=== PATIENT | female | born 1980 | race American Indian/Alaskan Native ===

== ENCOUNTER 2018-04-01 08:52 | Inpatient (IN) | payer SELFPAY ==
[2018-04-01] MEDS ORDERED: BABY ASPIRIN PO ONE (08:53)
[2018-04-01] MEDS ORDERED: ZOFRAN IV ONE (08:53)
[2018-04-01] MEDS ORDERED: NACL 0.9% 250ML 250 ML IV ONE (08:54)
[2018-04-01] MEDS ORDERED: SUBLIMAZE IV ONE (08:55)
--- NOTE | 2018-04-01 08:56 | Emergency Department Report ---
ED Chest Pain HPI - General Chief Complaint: Chest Pain Stated Complaint: CHEST PAIN Time Seen by Provider: 04/01/18 08:53 Source: patient, EMS (verbal report received from EMS.ems notes not available at time of chart dictation) Mode of arrival: Stretcher Limitations: Other (patient is a poor historian) - History of Present Illness Initial Comments: This is a 27-year-old female who is not known to this provider previously, who denies DVT, pulmonary embolus risk factors, who reports that she is not . She presents to the ER with a complaint of left-sided anterior chest pain, that has been intermittent since midnight. The pain does not radiate anywhere, and she reports no exacerbating or relieving factors. She describes shortness of breath and nausea. A prehospital EKG suggested anterior wall STEMI , and upon arrival to the ER, a repeat EKG corroborated this. A code STEMI was called overhead, and the patient was seen and evaluated by the keno clerk, Dr. Sun, who agrees to take the patient to the Drywall Application Supervisor for emergent diagnostic/therapeutic catheterization. Patient reported a possible allergy to aspirin, which she endorsed was palpitations. She did not endorse any symptoms to suggest anaphylaxis. The keno clerk requested 5000 units of heparin. MD Complaint: chest pain -: Gradual Onset: during rest Pain Location: left chest Pain Radiation: none Severity: severe Quality: pressure Consistency: intermittent Improves With: nothing Worsens With: nothing Aspirin use within the Past 7 Days: (0) No - Related Data On Oral Contraceptives: No Allergies Allergy/AdvReac Type Severity Reaction Status Date / Time aspirin Allergy Unknown Verified 04/01/18 08:55 Heart Score - HEART Score History: Highly suspicious EKG: Significant ST-depression Age: < 45 Risk factors: No known risk factors Troponin: < normal limit HEART Score: 4 - Critical Actions Critical Actions: 4-6 pts:12-16.6% risk of adverse cardiac event. Should be admitted ED Review of Systems ROS: Stated complaint: CHEST PAIN Other details as noted in HPI Comment: Unobtainable due to pts medical conditions ED Physical Exam - General Limitations: No Limitations General appearance: alert, in distress, obese - Head Head exam: Present: atraumatic, normocephalic - Eye Eye exam: Present: normal appearance - ENT ENT exam: Present: normal exam, normal orophraynx, normal external ear exam - Neck Neck exam: Present: normal inspection, full ROM - Respiratory Respiratory exam: Present: normal lung sounds bilaterally - Cardiovascular Cardiovascular Exam: Present: regular rate, normal rhythm, normal heart sounds - GI/Abdominal GI/Abdominal exam: Present: soft - Extremities Exam Extremities exam: Present: normal inspection, full ROM - Back Exam Back exam: Present: normal inspection, full ROM - Neurological Exam Neurological exam: Present: alert, other (patient is moving 4 extremities spontaneously. There is no obvious facial droop.) - Psychiatric Psychiatric exam: Present: anxious - Skin Skin exam: Present: normal color ED Course Vital Signs 04/01/18 09:02 Pulse Rate 76 Respiratory 26 H Rate Blood Pressure 138/88 [Left] O2 Sat by Pulse 100 Oximetry JANE score - Jane Score Age > 65: (0) No Aspirin use within the Past 7 Days: (0) No 3 or more CAD Risk Factors: (0) No 2 or more Angina events in past 24 hrs: (1) Yes Known CAD with more than 50% Stenosis: (0) No Elevated Cardiac Markers: (0) No ST Deviation Greater than 0.5mm: (1) Yes JANE Score: 2 ED Medical Decision Making - Lab Data Result diagrams: 04/01/18 08:55 04/01/18 08:55 - EKG Data -: EKG Interpreted by Mo EKG shows normal: sinus rhythm - EKG Data Interpretation: acute AK 04/01/18 09:22 EKG demonstrates a sinus rhythm, ST elevation in anterior leads, with reciprocal depression in the inferior leads, suggestive of a STEMI. There is a normal axis. - Radiology Data Radiology results: report reviewed, image reviewed X-ray of the chest is negative for acute disease - Medical Decision Making Differential diagnosis, including not limited to: Acute coronary syndrome, pericarditis, myocarditis Assessment and plan: 37-year-old female with probable anterior wall STEMI, keno clerk will decide on Plavix during catheterization, will be given aspirin, fentanyl, heparin. Patient currently catheterization lab. Critical care attestation.: If time is entered above; I have spent that time in minutes in the direct care of this critically ill patient, excluding procedure time. ED Disposition Clinical Impression: STEMI (ST elevation myocardial infarction) Qualifiers: Involved coronary artery: unspecified coronary artery Qualified Code(s): I21.3 - ST elevation (STEMI) myocardial infarction of unspecified site Disposition: DC-09 OP ADMIT IP TO THIS HOSP Is pt being admited?: Yes Condition: Critical
[2018-04-01] MEDS ORDERED: HEPARIN 10,000 UNITS/10 ML IV ONE (08:57)
[2018-04-01 09:06] LABS: Hematocrit 33.2 % (30.3-42.9); Hemoglobin 10.4 gm/dl (10.1-14.3); Mean Corpuscular HGB Conc 31 % (30-34); Mean Corpuscular Volume 79 fl (79-97); Platelet Count 404 K/mm3 (140-440); Red Blood Count 4.22 M/mm3 (3.65-5.03); Red Cell Distribution Width 18.9 % (13.2-15.2)
[2018-04-01] MEDS ORDERED: HEPARIN/NS 5000 UNIT/500ML(CATH LAB) 1,000 ML IR ONE (09:08)
[2018-04-01] MEDS ORDERED: HEPARIN 10,000 UNITS/10 ML ONE ×2 (09:08→10:04)
[2018-04-01] MEDS ORDERED: SUBLIMAZE ONE (09:09)
[2018-04-01] MEDS ORDERED: CALAN ONE (09:09)
[2018-04-01] MEDS ORDERED: VERSED ONE (09:09)
[2018-04-01] MEDS ORDERED: NACL 0.9% 500 ML 500 ML ONE (09:10)
[2018-04-01] MEDS ORDERED: NITROGLYCERIN SYRINGE 3 ML ONE (09:10)
[2018-04-01] MEDS ORDERED: XYLOCAINE 2% INFILTRATI ONE (09:10)
--- NOTE | 2018-04-01 09:10 | XRay Report ---
AP CHEST: HISTORY: Chest pain AP view of the chest demonstrates a normal mediastinal and cardiac contour with clear lungs and normal bony and soft tissue structures. IMPRESSION: Unremarkable AP chest.
[2018-04-01 09:16] LABS: INR 0.86 (0.87-1.13)
[2018-04-01 09:28] LABS: Creatine Kinase MB 1.6 ng/mL (0.0-4.0)
[2018-04-01 09:29] LABS: BUN/Creatinine Ratio 11; Blood Urea Nitrogen 11 mg/dL (7-17); Hemolysis Index 17; Mean Corpuscular Hemoglobin 25 pg (28-32)
[2018-04-01] MEDS: SUBLIMAZE ONE ×2 (09:33→09:46)
[2018-04-01] MEDS ORDERED: AGGRASTAT DRIP (12.5 MG/250 ML) 12,500 MCG/250 ML BAG IV ONE (09:33)
[2018-04-01] MEDS ORDERED: ALUM-MAG HYDROX-SIMETH 200-200-20MG/5ML ONE (09:51)
[2018-04-01] MEDS ORDERED: PLAVIX ONE (09:51)
[2018-04-01] MEDS ORDERED: ULTRAM PO PRN (10:11)
[2018-04-01] MEDS ORDERED: ZOFRAN IV PRN (10:11)
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
[2018-04-01] MEDS ORDERED: AGGRASTAT DRIP (12.5 MG/250 ML) 12,500 MCG/250 ML BAG IV SCH (11:00)
[2018-04-01 11:15] LABS: Basophils % (Manual) 0 % (0.0-1.8); Total Cells Counted 100
[2018-04-01 11:16] LABS: Platelet Estimate Consistent w Auto; Spherocytes Few
[2018-04-01] MEDS: NORCO 5/325 PO PRN ×2 (11:40→21:16)
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
[2018-04-01] MEDS ORDERED: NACL 0.9% 1000 ML 1,000 ML IV SCH (15:10)
[2018-04-01 15:14] LABS: Creatine Kinase MB 12.1 ng/mL (0.0-4.0)
[2018-04-01 16:21] LABS: Chol/HDL Ratio 2.79 %
[2018-04-01] MEDS: FLEXERIL PO PRN (16:45)
[2018-04-01] MEDS: AMBIEN PO PRN (21:16)
[2018-04-01] MEDS: LOPRESSOR PO SCH (21:16)
[2018-04-01] MEDS ORDERED: LOPRESSOR PO SCH (22:00)
--- NOTE | 2018-04-02 02:57 | XRay Report ---
FINAL REPORT EXAM: XR CHEST 1V AP HISTORY: post pci COMPARISON: None available. FINDINGS: Frontal view(s) of the chest obtained. Heart upper limits normal in size.. No gross consolidation or effusion. No pneumothorax. IMPRESSION: No grossly acute findings.
[2018-04-02] MEDS: FLEXERIL PO PRN (03:33)
[2018-04-02 06:06] LABS: Basophils % (Auto) 0.6 % (0.0-1.8); Eosinophils # (Auto) 0.2 K/mm3 (0.0-0.4); Hematocrit 29.8 % (30.3-42.9); Hemoglobin 9.3 gm/dl (10.1-14.3); Lymphocytes # (Auto) 2.4 K/mm3 (1.2-5.4); Lymphocytes % (Auto) 30.7 % (13.4-35.0); Mean Corpuscular HGB Conc 31 % (30-34); Mean Corpuscular Volume 78 fl (79-97); Monocytes # (Auto) 0.5 K/mm3 (0.0-0.8); Monocytes % (Auto) 6.2 % (0.0-7.3); Platelet Count 403 K/mm3 (140-440); Red Blood Count 3.81 M/mm3 (3.65-5.03); Red Cell Distribution Width 19.1 % (13.2-15.2)
[2018-04-02 06:13] LABS: Mean Corpuscular Hemoglobin 24 pg (28-32)
[2018-04-02 06:52] LABS: Creatine Kinase MB 14.8 ng/mL (0.0-4.0)
[2018-04-02 06:54] LABS: BUN/Creatinine Ratio 9; Blood Urea Nitrogen 8 mg/dL (7-17); Calcium 8.7 mg/dL (8.4-10.2); Hemolysis Index 4
[2018-04-02] MEDS: NORCO 5/325 PO PRN ×2 (08:44→17:42)
[2018-04-02] MEDS ORDERED: FLEXERIL PO PRN (08:59)
--- NOTE | 2018-04-02 09:02 | Progress Note ---
Assessment and Plan add lisinopril 2.5 mg daily and cont lopressor and statin and asa and plavix, transfer to tele, pt goals are ambulation possilbe discharge in am - Patient Problems (1) Acute anterior wall [place] Current Visit: Yes Status: Acute (2) Acute diastolic (congestive) heart failure Current Visit: Yes Status: Acute (3) Smoker Current Visit: Yes Status: Chronic (4) Hyperlipidemia Current Visit: Yes Status: Acute Qualifiers: Hyperlipidemia type: mixed hyperlipidemia Qualified Code(s): E78.2 - Mixed hyperlipidemia (5) Morbid obesity Current Visit: Yes Status: Chronic Subjective Date of service: 04/02/18 Principal diagnosis: acute mi Interval history: pt is chest pain free this am Objective Vital Signs Temp Pulse Pulse Pulse Resp BP BP 04/02/18 05:00 61 16 117/61 04/02/18 04:01 63 15 124/73 04/02/18 04:00 66 20 04/02/18 03:46 98.9 F 04/02/18 03:00 62 16 124/73 04/02/18 02:00 64 15 111/66 04/02/18 01:01 65 17 108/61 04/02/18 00:11 64 18 121/73 04/02/18 00:00 98.2 F 61 65 16 121/73 04/01/18 23:51 64 19 126/66 04/01/18 23:41 64 17 126/66 04/01/18 23:31 70 16 126/66 04/01/18 23:21 67 19 119/71 04/01/18 23:11 67 20 119/71 04/01/18 23:00 66 17 119/71 04/01/18 22:50 69 19 04/01/18 22:41 67 18 126/66 04/01/18 22:31 67 16 126/66 04/01/18 22:21 73 22 126/66 04/01/18 22:11 69 15 126/66 04/01/18 22:01 78 21 04/01/18 22:00 69 04/01/18 21:51 73 19 04/01/18 21:44 68 20 04/01/18 21:16 69 136/76 04/01/18 21:00 97.7 F 04/01/18 20:00 04/01/18 19:00 64 14 145/85 04/01/18 18:57 66 8 L 04/01/18 18:00 67 12 139/75 04/01/18 17:00 62 11 L 155/79 04/01/18 16:00 58 L 11 L 149/86 04/01/18 15:30 60 10 L 163/85 04/01/18 15:00 64 12 158/89 04/01/18 14:30 69 13 138/79 04/01/18 14:00 73 10 L 144/79 04/01/18 13:45 66 17 151/85 04/01/18 13:30 63 9 L 150/88 04/01/18 13:00 72 12 149/78 04/01/18 12:30 77 12 155/77 04/01/18 12:00 85 13 138/70 04/01/18 11:30 96 H 18 133/76 04/01/18 11:15 72 15 144/80 04/01/18 11:00 72 13 137/77 04/01/18 10:45 98 H 18 155/87 04/01/18 10:30 97.5 F L 76 10 L 153/87 04/01/18 09:02 76 26 H 138/88 Pulse Ox 04/02/18 05:00 98 04/02/18 04:01 100 04/02/18 04:00 100 04/02/18 03:46 04/02/18 03:00 100 04/02/18 02:00 100 04/02/18 01:01 04/02/18 00:11 04/02/18 00:00 04/01/18 23:51 100 04/01/18 23:41 100 04/01/18 23:31 100 04/01/18 23:21 100 04/01/18 23:11 100 04/01/18 23:00 100 04/01/18 22:50 100 04/01/18 22:41 100 04/01/18 22:31 100 04/01/18 22:21 100 04/01/18 22:11 100 04/01/18 22:01 100 04/01/18 22:00 04/01/18 21:51 100 04/01/18 21:44 100 04/01/18 21:16 04/01/18 21:00 04/01/18 20:00 04/01/18 19:00 04/01/18 18:57 04/01/18 18:00 04/01/18 17:00 04/01/18 16:00 04/01/18 15:30 04/01/18 15:00 04/01/18 14:30 04/01/18 14:00 04/01/18 13:45 04/01/18 13:30 04/01/18 13:00 04/01/18 12:30 04/01/18 12:00 99 04/01/18 11:30 04/01/18 11:15 04/01/18 11:00 04/01/18 10:45 04/01/18 10:30 04/01/18 09:02 100 - Physical Examination General: Appears Well HEENT: Positive: PERRL, Mucus Membranes Moist Neck: Positive: neck supple, trachea midline Cardiac: Positive: Reg Rate and Rhythm Lungs: Positive: clear to auscultation Neuro: Positive: Grossly Intact Abdomen: Positive: Soft, Active Bowel Sounds. Negative: Tender, Distended Skin: Positive: Clear Incision: Cardiac Cath Site (right radial no hematoma no bleeding) Musculoskeletal: No Pain, Normal Range of Motion Extremities: Present: normal. Absent: edema - Labs and Meds Cardiac Enzymes 04/01/18 04/01/18 04/02/18 Range/Units 08:55 14:30 05:02 CK-MB (CK-2) 1.6 12.1 H 14.8 H (0.0-4.0) ng/mL Coagulation 04/01/18 Range/Units 08:55 PT 12.2 (12.2-14.9) Sec. INR 0.86 L (0.87-1.13) APTT 21.0 L (24.2-36.6) Sec. Lipids 04/01/18 Range/Units 14:30 Triglycerides 109 (2-149) mg/dL Cholesterol 179 (50-199) mg/dL HDL Cholesterol 64 H (40-59) mg/dL Cholesterol/HDL Ratio 2.79 % CBC 04/01/18 04/02/18 Range/Units 08:55 05:02 WBC 9.8 7.7 (4.5-11.0) K/mm3 RBC 4.22 3.81 (3.65-5.03) M/mm3 Hgb 10.4 9.3 L (10.1-14.3) gm/dl Hct 33.2 29.8 L (30.3-42.9) % Plt Count 404 403 (140-440) K/mm3 Lymph # Highway Administrative Engineer 2.4 [place] # 0.5 (0.0-0.8) K/mm3 Eos # 0.2 (0.0-0.4) K/mm3 Baso # 0.0 (0.0-0.1) K/mm3 Comprehensive Metabolic Panel 04/01/18 04/02/18 Range/Units 08:55 05:02 Sodium 137 139 (137-145) mmol/L Potassium 3.9 4.1 (3.6-5.0) mmol/L Chloride 103.0 104.7 (98-107) mmol/L Carbon Dioxide 19 L 20 L (22-30) mmol/L BUN 11 8 (7-17) mg/dL Creatinine 1.0 0.9 (0.7-1.2) mg/dL Glucose 136 H 100 (65-100) mg/dL Calcium 9.0 8.7 (8.4-10.2) mg/dL - Imaging and Cardiology Echo: report reviewed (04/01/2018 mild lv dsyfunction ef 40-45% apical and anterior hypokinesis) Cardiac cath: report reviewed (04/01/2018 left main patent LAD ostial JANE 2 flow with 95% lesion rupture plaque circumflex patent ramus patent RCA patent with normal LV function patient had PCI of the ostial and proximal LAD with a drug- eluting resolute 3.5 x 18 mm and postdilated to 4.0 x 12 mm IVUS) - Telemetry EKG Rhythm: Sinus Rhythm
[2018-04-02] MEDS: LOPRESSOR PO SCH ×2 (09:26→21:48)
[2018-04-02] MEDS: BABY ASPIRIN PO SCH (09:26)
[2018-04-02] MEDS: ZESTRIL PO SCH (09:27)
[2018-04-02] MEDS: PLAVIX PO SCH (09:27)
[2018-04-02] MEDS ORDERED: BABY ASPIRIN PO SCH (10:00)
[2018-04-02] MEDS: AMBIEN PO PRN (21:50)
[2018-04-03 06:02] LABS: Basophils % (Auto) 0.5 % (0.0-1.8); Eosinophils # (Auto) 0.3 K/mm3 (0.0-0.4); Eosinophils % (Auto) 3.2 % (0.0-4.3); Hematocrit 30.2 % (30.3-42.9); Hemoglobin 9.4 gm/dl (10.1-14.3); Lymphocytes # (Auto) 3.6 K/mm3 (1.2-5.4); Lymphocytes % (Auto) 39.4 % (13.4-35.0); Mean Corpuscular HGB Conc 31 % (30-34); Mean Corpuscular Volume 79 fl (79-97); Monocytes # (Auto) 0.5 K/mm3 (0.0-0.8); Monocytes % (Auto) 5.6 % (0.0-7.3); Platelet Count 377 K/mm3 (140-440); Red Blood Count 3.83 M/mm3 (3.65-5.03); Red Cell Distribution Width 18.1 % (13.2-15.2)
[2018-04-03 06:06] LABS: Mean Corpuscular Hemoglobin 24 pg (28-32)
[2018-04-03 08:45] VITALS: BP 107/68
[2018-04-03] MEDS: LOPRESSOR PO SCH (09:21)
[2018-04-03] MEDS: ZESTRIL PO SCH (09:22)
[2018-04-03] MEDS: BABY ASPIRIN PO SCH (09:40)
[2018-04-03] MEDS: PLAVIX PO SCH (09:40)
[2018-04-03] MEDS: NORCO 5/325 PO PRN (09:46)
--- NOTE | 2018-04-03 10:06 | Progress Note ---
Assessment and Plan Currently stable cardiac status. Cont present regimen. Pt may discharge home. Follow up in our [place] office with Dr. Sun on 04/07/2018 @ 11:00AM. The patient has been seen in conjunction with Dr. Sun who agrees with the assessment and plan of care. - Patient Problems (1) Acute anterior wall [place] Current Visit: Yes Status: Acute (2) Acute diastolic (congestive) heart failure Current Visit: Yes Status: Acute (3) Smoker Current Visit: Yes Status: Chronic (4) Hyperlipidemia Current Visit: Yes Status: Acute Qualifiers: Hyperlipidemia type: mixed hyperlipidemia Qualified Code(s): E78.2 - Mixed hyperlipidemia (5) Morbid obesity Current Visit: Yes Status: Chronic Subjective Date of service: 04/03/18 Principal diagnosis: acute mi Interval history: pt resting comfortably in bed, no current complaints. Objective Last Vital Signs Temp 98.3 F 04/03/18 08:28 Pulse 74 04/03/18 09:22 Resp 20 04/03/18 08:28 BP 107/68 04/03/18 09:22 Pulse Ox 99 04/03/18 08:28 - Physical Examination General: Appears Well HEENT: Positive: PERRL, Mucus Membranes Moist Neck: Positive: neck supple, trachea midline Cardiac: Positive: Reg Rate and Rhythm, S1/S2 Lungs: Positive: clear to auscultation Neuro: Positive: Grossly Intact Abdomen: Positive: Soft, Active Bowel Sounds. Negative: Tender, Distended Skin: Positive: Clear Incision: Cardiac Cath Site (right radial no hematoma no bleeding) Musculoskeletal: No Pain, Normal Range of Motion Extremities: Present: normal. Absent: edema - Labs and Meds CBC 04/03/18 Range/Units 04:49 WBC 9.2 (4.5-11.0) K/mm3 RBC 3.83 (3.65-5.03) M/mm3 Hgb 9.4 L (10.1-14.3) gm/dl Hct 30.2 L (30.3-42.9) % Plt Count 377 (140-440) K/mm3 Lymph # 3.6 (1.2-5.4) K/mm3 [place] # 0.5 (0.0-0.8) K/mm3 Eos # 0.3 (0.0-0.4) K/mm3 Baso # 0.0 (0.0-0.1) K/mm3 - Imaging and Cardiology Echo: report reviewed (04/01/2018 mild lv dsyfunction ef 40-45% apical and anterior hypokinesis) Cardiac cath: report reviewed (04/01/2018 left main patent LAD ostial JANE 2 flow with 95% lesion rupture plaque circumflex patent ramus patent RCA patent with normal LV function patient had PCI of the ostial and proximal LAD with a drug- eluting resolute 3.5 x 18 mm and postdilated to 4.0 x 12 mm IVUS) - Telemetry EKG Rhythm: Sinus Rhythm
--- NOTE | 2018-04-03 10:27 | Discharge Summary ---
<MICAH CHONG - Last Filed: 04/03/18 10:29> Providers - Providers Date of Admission: 04/01/18 10:11 Date of discharge: 04/03/18 Attending physician: BRIGITTE SUN 04/01/18 Consult to Cardiac Rehabilitation [CONS] Routine Reason For Exam: post pci 04/01/18 08:53 Consult to Physician [CONS] Stat Comment: Consulting Provider: BRIGITTE SUN Physician Instructions: Reason For Exam: stemi 04/01/18 10:16 Consult to Physician [CONS] Routine Comment: Consulting Provider: BOBO CHAVEZ Physician Instructions: Reason For Exam: post mi in icu 04/02/18 09:03 Consult to Case Management [CONS] Routine Services Needed at Discharge: Other Notified:: case management Comment:: insurance status Primary care physician: [employer] Hospitalization Condition: Critical Pertinent studies: LHC with PCI and echo - see reports Procedures: LHC with PCI and echo - see reports Hospital course: The patient presented on 04/01/2018 with complaints of chest pain. ECG demonstrated an acute anterior wall IL and patient was brought emergently to the cardiac laboratory mechanical technician for coronary angiography. LHC revealed left main patent LAD ostial JANE 2 flow with 95% lesion rupture plaque circumflex patent ramus patent RCA patent with normal LV function patient had PCI of the ostial and proximal LAD with a drug-eluting resolute 3.5 x 18 mm and postdilated to 4.0 x 12 mm IVUS directed with resolution of chest pain. She remained clinically and hemodynamically stable throughout the hospitalization and is medically stable for discharge home today. Disposition: [id number] TO HOME OR SELFCARE - Discharge Diagnoses (1) Acute anterior wall IL Status: Acute (2) Acute diastolic (congestive) heart failure Status: Acute (3) Hyperlipidemia Status: Chronic Qualifiers: Hyperlipidemia type: mixed hyperlipidemia Qualified Code(s): E78.2 - Mixed hyperlipidemia (4) Morbid obesity Status: Chronic (5) Smoker Status: Chronic Core Measure Documentation - Palliative Care Palliative Care/ Comfort Measures: Not Applicable - Core Measures Any of the following diagnoses?: acute IL - Acute IL Discharge Requirements Aspirin at discharge: Yes MONIQUE/ARB for LVSD if EF <40%: Yes Beta paige at discharge: Yes Statin for LDL = or >100 mg/dl on DC: Yes Exam - Constitutional Vitals: Temp Pulse Resp BP Pulse Ox 98.3 F 74 20 107/68 99 04/03/18 08:28 04/03/18 09:22 04/03/18 08:28 04/03/18 09:22 04/03/18 08:28 General appearance: Present: no acute distress - EENT Eyes: Present: PERRL, EOM intact ENT: hearing intact, clear oral mucosa, dentition normal - Neck Neck: Present: supple, normal ROM - Respiratory Respiratory effort: normal Respiratory: bilateral: CTA - Cardiovascular Rhythm: regular Heart Sounds: Present: S1 & S2 - Extremities Extremities: no ischemia, pulses intact, pulses symmetrical, No edema, normal temperature, normal color, Full ROM Peripheral Pulses: within normal limits - Abdominal General gastrointestinal: Present: soft, non-tender - Integumentary Integumentary: Present: clear, warm, dry - Musculoskeletal Musculoskeletal: strength equal bilaterally - Psychiatric Psychiatric: appropriate mood/affect Plan Activity: advance as tolerated Diet: low fat, low cholesterol, low salt Wound: open to air, keep clean and dry, per your surgeon's advice Follow up with: PRIMARY CAREMD [Primary Care Provider] - 7 Days BRIGITTE SUN MD [Staff Physician] - 7 Days (Follow up in our [place] office with Dr. Sun on 04/07/2018 @ 11:00AM. ) Forms: CardCath PCI D/C Instructions Prescriptions: AtorvaSTATin [Lipitor] 80 mg PO QHS #30 tablet Clopidogrel [Plavix] 75 mg PO QDAY #30 tablet Lisinopril [Zestril TAB] 2.5 mg PO QDAY #30 tablet Metoprolol [Lopressor TAB] 25 mg PO BID #60 tablet <BRIGITTE SUN - Last Filed: 04/04/18 08:35> Providers - Providers Date of Admission: 04/01/18 10:11 Attending physician: BRIGITTE SUN 04/01/18 Consult to Cardiac Rehabilitation [CONS] Routine Reason For Exam: post pci 04/01/18 08:53 Consult to Physician [CONS] Stat Comment: Consulting Provider: BRIGITTE SUN Physician Instructions: Reason For Exam: stemi 04/01/18 10:16 Consult to Physician [CONS] Routine Comment: Consulting Provider: BOBO CHAVEZ Physician Instructions: Reason For Exam: post mi in icu 04/02/18 09:03 Consult to Case Management [CONS] Routine Services Needed at Discharge: Other Notified:: case management Comment:: insurance status Primary care physician: [employer] WORK[employer] Hospitalization - Discharge Diagnoses (1) Acute anterior wall IL Status: Acute (2) Acute diastolic (congestive) heart failure Status: Acute (3) Smoker Status: Chronic (4) Hyperlipidemia Status: Chronic Qualifiers: Hyperlipidemia type: mixed hyperlipidemia Qualified Code(s): E78.2 - Mixed hyperlipidemia (5) Morbid obesity Status: Inactive (6) 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
== END 2018-04-03 14:40 | disposition home or self-care (01) | DRG 246 ==
LOC: EDBD 08:52 → ED 08:52 → CATH 09:11 → CC1 10:11 → 4A 04-02 11:58
PROVIDERS: ADMIT Internal Medicine; ATTEND Internal Medicine
PROC: 027034Z Dilation of Coronary Artery, One Artery with Drug-eluting Intraluminal Device, Percutaneous Approach (ICD-10-PCS; principal; 2018-04-01)
PROC: B240ZZ3 Ultrasonography of Single Coronary Artery, Intravascular (ICD-10-PCS; 2018-04-01)
PROC: 4A023N7 Measurement of Cardiac Sampling and Pressure, Left Heart, Percutaneous Approach (ICD-10-PCS; 2018-04-01)
PROC: B2111ZZ Fluoroscopy of Multiple Coronary Arteries using Low Osmolar Contrast (ICD-10-PCS; 2018-04-01)
PROC: B2151ZZ Fluoroscopy of Left Heart using Low Osmolar Contrast (ICD-10-PCS; 2018-04-01)
DX: I21.09 ST elevation (STEMI) myocardial infarction involving other coronary artery of anterior wall (principal); I50.31 Acute diastolic (congestive) heart failure; E78.2 Mixed hyperlipidemia; E66.01 Morbid (severe) obesity due to excess calories; F17.210 Nicotine dependence, cigarettes, uncomplicated; G89.29 Other chronic pain; M54.9 Dorsalgia, unspecified; Z98.51 Tubal ligation status; Z82.49 Family history of ischemic heart disease and other diseases of the circulatory system; Z88.6 Allergy status to analgesic agent; Z68.34 Body mass index [BMI] 34.0-34.9, adult; Z71.6 Tobacco abuse counseling
CPT/HCPCS: 36415; 71045; 80048; 80061; 82550; 82553; 84484; 84702; 85007; 85014; 85018; 85025; 85347; 85610; 85730; 86850; 86900; 86901; 92941; 92950; 92978; 93005; 93010; 93306; 93458; 96365; 96366; 99406; A9270-GY; C1725; C1753; C1769; C1874; C1887; C1894; C9606; J1644; J2250; J2405; J3010; J3246; J7030; J7040; Q9967

== ENCOUNTER 2018-09-17 21:49 | Emergency (ER) | payer SELFPAY ==
--- NOTE | 2018-09-17 22:10 | Emergency Department Report ---
Blank Doc - Documentation Documentation: This is a 38-year-old female that presents with left sided chest pain with rad iation to left arm and neck area. Also stated has nasal congestion and URI symptoms. Denies any SOB. PMH ND with cardiac stent placed 2018. This initial assessment diagnostic orders/clinical plan/treatment(s) is/are subject to change based on patient's health status, clinical progression and re- assessment by fellow clinical providers in the ED. Further treatment and workup at subsequent clinical providers discretion. Patient/guardians urged not to elope from ED s their condition may be serious if not clinically assessed and managed. Initial orders include: 1-Patient sent to MAIN ED for further evaluation and treatment 2- labs 3- EKG 4- CXR
[2018-09-17 22:48] LABS: Basophils # (Auto) 0.1 K/mm3 (0.0-0.1); Basophils % (Auto) 0.8 % (0.0-1.8); Eosinophils # (Auto) 0.3 K/mm3 (0.0-0.4); Eosinophils % (Auto) 3.7 % (0.0-4.3); Hematocrit 32.2 % (30.3-42.9); Hemoglobin 9.9 gm/dl (10.1-14.3); Lymphocytes # (Auto) 2.5 K/mm3 (1.2-5.4); Mean Corpuscular HGB Conc 31 % (30-34); Mean Corpuscular Volume 79 fl (79-97); Monocytes # (Auto) 0.4 K/mm3 (0.0-0.8); Monocytes % (Auto) 5.7 % (0.0-7.3); Platelet Count 432 K/mm3 (140-440); Red Cell Distribution Width 17.8 % (13.2-15.2)
[2018-09-17 22:59] LABS: INR 0.85 (0.87-1.13)
--- NOTE | 2018-09-17 23:01 | Emergency Department Report ---
ED Chest Pain HPI - General Chief Complaint: Chest Pain Stated Complaint: CHEST BACK PAIN Time Seen by Provider: 09/17/18 22:08 Source: patient Mode of arrival: Ambulatory Limitations: No Limitations - History of Present Illness Initial Comments: 38-year-old female presents to ED with complaint of chest pain. The patient was admitted 5 months ago with anterior STEMI, one stent was placed at that time. Patient states she has been compliant with her medications, including Plavix. Patient admits that she is still smoking cigarettes. Patient reports left-sided chest pain radiating to her left neck and down left arm that has been intermittent for one week. Characterizes pain as aching pain. Patient also reports URI symptoms 3 weeks and included a productive cough, sinus pressure. Cardiology: Corinne WASHINGTON Complaint: chest pain -: week(s) (1) Onset: during rest, during exertion Pain Location: left chest Pain Radiation: LUE, neck Severity: moderate Severity scale (0 -10): 6 Quality: aching Consistency: intermittent Improves With: nothing Worsens With: nothing, exertion re: dyspnea. denies: nausea, vomting, diaphoresis Other Symptoms: cough. denies: leg swelling - Related Data Home Medications Medication Instructions Recorded Confirmed Last Taken Cyclobenzaprine [Flexeril 10 MG 10 mg PO TID PRN 04/01/18 04/01/18 Unknown TAB] Oxycodone HCl/Acetaminophen 1 each PO Q6HR PRN 04/01/18 04/01/18 03/31/18 [Percocet 7.5/325 mg] Previous Rx's Medication Instructions Recorded Last Taken Type Methocarbamol [Robaxin-750] 1,500 mg PO TID #30 tablet 05/19/17 Unknown Rx traMADol [Ultram 50 MG tab] 50 mg PO Q6HR PRN #20 tablet 05/19/17 Unknown Rx Aspirin [Aspirin BABY CHEW TAB] 81 mg PO QDAY tab.chew 04/03/18 Unknown Rx AtorvaSTATin [Lipitor] 80 mg PO QHS #30 tablet 04/03/18 Unknown Rx Clopidogrel [Plavix] 75 mg PO QDAY #30 tablet 04/03/18 Unknown Rx Lisinopril [Zestril TAB] 2.5 mg PO QDAY #30 tablet 04/03/18 Unknown Rx Metoprolol [Lopressor TAB] 25 mg PO BID #60 tablet 04/03/18 Unknown Rx Allergies Allergy/AdvReac Type Severity Reaction Status Date / Time No Known Allergies Allergy Unverified 09/17/18 22:12 Heart Score - HEART Score History: Moderately suspicious EKG: Normal Age: < 45 Risk factors: > 3 risk factors or hx of atherosclerotic disease Troponin: < normal limit HEART Score: 3 ED Review of Systems ROS: Stated complaint: CHEST BACK PAIN Other details as noted in HPI Comment: All other systems reviewed and negative Constitutional: denies: fever Respiratory: cough, shortness of breath Cardiovascular: chest pain Gastrointestinal: denies: nausea, vomiting Musculoskeletal: other (denies leg pain or swelling) ED Past Medical Hx - Past Medical History Hx Hypertension: Yes Hx Heart Attack/AMI: Yes (04/01/2018 STEMI) Hx Congestive Heart Failure: No Hx Diabetes: No Hx Asthma: No Hx COPD: No Hx HIV: No - Surgical History Hx Coronary Stent: Yes Additional Surgical History: C/S - Social History Smoking Status: Current Every Day Smoker Substance Use Type: None - Medications Home Medications: Home Medications Medication Instructions Recorded Confirmed Last Taken Type Methocarbamol [Robaxin-750] 1,500 mg PO TID #30 tablet 05/19/17 Unknown Rx traMADol [Ultram 50 MG tab] 50 mg PO Q6HR PRN #20 tablet 05/19/17 Unknown Rx Cyclobenzaprine [Flexeril 10 MG 10 mg PO TID PRN 04/01/18 04/01/18 Unknown History TAB] Oxycodone HCl/Acetaminophen 1 each PO Q6HR PRN 04/01/18 04/01/18 03/31/18 History [Percocet 7.5/325 mg] Aspirin [Aspirin BABY CHEW TAB] 81 mg PO QDAY tab.chew 04/03/18 Unknown Rx AtorvaSTATin [Lipitor] 80 mg PO QHS #30 tablet 04/03/18 Unknown Rx Clopidogrel [Plavix] 75 mg PO QDAY #30 tablet 04/03/18 Unknown Rx Lisinopril [Zestril TAB] 2.5 mg PO QDAY #30 tablet 04/03/18 Unknown Rx Metoprolol [Lopressor TAB] 25 mg PO BID #60 tablet 04/03/18 Unknown Rx ED Physical Exam - General Limitations: No Limitations General appearance: alert, in no apparent distress - Head Head exam: Present: atraumatic, normocephalic - Eye Eye exam: Present: normal appearance - ENT ENT exam: Present: mucous membranes moist - Neck Neck exam: Present: normal inspection - Respiratory Respiratory exam: Present: normal lung sounds bilaterally. Absent: respiratory distress - Cardiovascular Cardiovascular Exam: Present: regular rate, normal rhythm - GI/Abdominal GI/Abdominal exam: Present: soft. Absent: distended, tenderness - Extremities Exam Extremities exam: Absent: pedal edema, calf tenderness - Neurological Exam Neurological exam: Present: alert, oriented X3 - Psychiatric Psychiatric exam: Present: normal affect, normal mood - Skin Skin exam: Present: warm, dry, intact, normal color ED Course Vital Signs 09/17/18 09/17/18 22:09 23:21 Temperature 98.4 F Pulse Rate 82 Respiratory 20 18 Rate Blood Pressure 164/95 O2 Sat by Pulse 100 98 Oximetry JOSE score - Jose Score Age > 65: (0) No Aspirin use within the Past 7 Days: (0) No 3 or more CAD Risk Factors: (0) No 2 or more Angina events in past 24 hrs: (1) Yes Known CAD with more than 50% Stenosis: (0) No Elevated Cardiac Markers: (0) No ST Deviation Greater than 0.5mm: (1) Yes JOSE Score: 2 ED Medical Decision Making - Lab Data Result diagrams: 09/17/18 22:23 09/17/18 22:23 - EKG Data -: EKG Interpreted by Me EKG shows normal: sinus rhythm, axis, intervals, QRS complexes, ST-T waves Rate: normal - EKG Data Interpretation: no acute changes - Radiology Data Radiology results: report reviewed, image reviewed - Medical Decision Making 38-year-old female with history of CAD presents to ED with chest pain radiating into her left neck and left arm. EKG and troponin negative 1. Spoke with patient and advised admission for stress testing, however, pt refuses. States she does not want another hospital bill. Advised patient that I also spoke w/ Dr Garcia, who agreed that patient needs admission for rule-out. Patient still refuses even though I have advised her of her risks of having another heart attack or worse, cardiac arrest and . Patient understands and states she will follow up with Dr Sun in his office on tomorrow. Patient understands the risks and benefits of admission. Patient advised to return if needed. Pt will be leaving AMA. - Differential Diagnosis ACS, pneumonia, bronchitis, pulm edema Critical care attestation.: If time is entered above; I have spent that time in minutes in the direct care of this critically ill patient, excluding procedure time. ED Disposition Clinical Impression: Chest pain Disposition: LEFT AGAINST MED ADVICE Is pt being admited?: No Condition: Stable Instructions: Chest Pain (ED) Referrals: BIPIN [facility] MD JEFE [Primary Care Provider] - 3-5 Days BRIGITTE SUN MD [Staff Physician] - 3-5 Days Time of Disposition: 00:50
[2018-09-17 23:07] LABS: Alanine Aminotransferase 17 units/L (7-56); Albumin 4.2 g/dL (3.9-5); BUN/Creatinine Ratio 17; Blood Urea Nitrogen 10 mg/dL (7-17); Hemolysis Index 0
[2018-09-17 23:26] LABS: Bilirubin,Urine NEG (Negative); Blood,Urine NEG (Negative); Color,Urine Straw (Yellow); Protein,Urine <15 mg/dL mg/dL (Negative); Urobilinogen,Urine < 2.0 mg/dL (<2.0)
[2018-09-17 23:27] LABS: RBC,Urine < 1.0 /HPF (0.0-6.0)
--- NOTE | 2018-09-18 00:30 | XRay Report ---
FINAL REPORT EXAM: XR CHEST ROUTINE 2V HISTORY: Chest Pain, left sided chest pain that radiates to neck x1 week TECHNIQUE: AP portable view of the chest. PRIORS: 04/01/2018 FINDINGS: The cardiac silhouette is enlarged without change. The lungs are clear. The bones and soft tissues ar e unremarkable. IMPRESSION: Stable cardiomegaly. No acute findings.
[2018-09-18 01:49] VITALS: BP 123/69
== END 2018-09-18 01:51 | disposition left against medical advice (07) ==
LOC: ED 21:49
DX: R07.9 Chest pain, unspecified (principal)
CPT/HCPCS: 36415; 71046; 80053; 81001; 84484; 84703; 85025; 85610; 85730; 93005; 93010